=== PATIENT | female | born 1950 | race American Indian/Alaskan Native ===

== ENCOUNTER 2020-05-12 10:10 | Emergency (ER) | payer MEDICARE ==
[2020-05-12] MEDS ORDERED: SODIUM CHLORIDE 0.9% 1000 ML IV SOLN IV ONE (10:48)
[2020-05-12] MEDS ORDERED: FAMOTIDINE 20 MG/2 ML INJ IV ONE (11:12)
--- NOTE | 2020-05-12 11:12 | Emergency Department Report ---
HPI - General Chief Complaint: Weakness Time Seen by Provider: 05/12/20 10:47 - HPI HPI: Room 22 The patient is a 69-year-old female present with a chief complaint of dizziness. Patient states 2 days ago several hours after eating some greasy fish and c hicken from a fast food store she developed nausea vomiting and diarrhea. The patient estimates she vomited 5 times and had 5 episodes of loose diarrhea. Patient states the following day she developed dizziness. Patient continues to complain of dizziness and epigastric abdominal pain. Patient denies history of fever, hematuria or dysuria. Patient states her urine has been dark ED Past Medical Hx - Past Medical History Hx Hypertension: Yes Hx Diabetes: Yes Additional medical history: Non-Hodgkin's lymphoma - Surgical History Additional Surgical History: neck/ BACK AND KNEE SURG/ HYST - Family History Family history: no significant - Social History Smoking Status: Current Every Day Smoker (1/2 pack/day) Substance Use Type: None (Denies illicit drug use) - Medications Home Medications: Home Medications Medication Instructions Recorded Confirmed Last Taken Type HYDROcodone/APAP 5-325 [[place] 1 - 2 each PO Q6HR PRN #14 tablet 05/12/20 Unknown Rx 5/325] Promethazine [Phenergan] 25 mg PO Q6HR PRN #20 tab 05/12/20 Unknown Rx levoFLOXacin [Levaquin] 750 mg PO QDAY #10 tablet 05/12/20 Unknown Rx metroNIDAZOLE [Flagyl] 500 mg PO Q8HR #30 tablet 05/12/20 Unknown Rx ED Review of Systems ROS: Stated complaint: WEAK,LIGHTHEADED Other details as noted in HPI Constitutional: denies: fever Eyes: denies: eye pain ENT: denies: throat pain Respiratory: no symptoms reported Cardiovascular: denies: chest pain Endocrine: no symptoms reported Gastrointestinal: abdominal pain, nausea, vomiting, diarrhea Genitourinary: denies: dysuria, hematuria Musculoskeletal: denies: back pain Neurological: denies: headache Physical Exam - Physical Exam Vital Signs: Vital Signs 05/12/20 05/12/20 10:15 10:50 Temperature 97.5 F L Pulse Rate 105 H 101 H Respiratory 18 22 Rate Blood Pressure 94/63 O2 Sat by Pulse 98 100 Oximetry Physical Exam: GENERAL: The patient is well-developed well-nourished female lying on stretcher not appearing to be in acute distress. [] HEENT: Normocephalic. Atraumatic. Extraocular motions are intact. Patient has moist mucous membranes. NECK: Supple. Trachea midline CHEST/LUNGS: Clear to auscultation. There is no respiratory distress noted. HEART/CARDIOVASCULAR: Regular. There is no tachycardia. There is no gallop rub or murmur. ABDOMEN: Abdomen is tender to palpation in the midepigastric and left upper quadrant. Patient has normal bowel sounds. There is no abdominal distention. SKIN: There is no rash. There is no edema. There is no diaphoresis. NEURO: The patient is awake, alert, and oriented. The patient is cooperative. The patient has normal speech MUSCULOSKELETAL: There is no evidence of acute injury. ED Course Vital Signs 05/12/20 05/12/20 10:15 10:50 Temperature 97.5 F L Pulse Rate 105 H 101 H Respiratory 18 22 Rate Blood Pressure 94/63 O2 Sat by Pulse 98 100 Oximetry ED Medical Decision Making - Lab Data Result diagrams: 05/12/20 10:53 05/12/20 10:53 Laboratory Tests 05/12/20 05/12/20 05/12/20 10:21 10:53 10:53 WBC 7.9 RBC 4.07 Hgb 10.8 Hct 32.1 MCV 79 MCH 26 L MCHC 34 RDW 16.5 H Plt Count 293 Lymph % (Auto) 22.2 [place] % (Auto) 6.5 Eos % (Auto) 0.6 Baso % (Auto) 0.6 Lymph # (Auto) 1.7 [place] # (Auto) 0.5 Eos # (Auto) 0.0 Baso # (Auto) 0.1 Seg Neutrophils % 70.1 H Seg Neutrophils # 5.5 VBG pH Sodium 141 Potassium 2.9 L* Chloride 103.8 Carbon Dioxide 27 Anion Gap 13 BUN 9 Creatinine 1.6 H Estimated GFR 39 BUN/Creatinine Ratio 6 Glucose 97 POC Glucose 111 H Lactic Acid Calcium 8.9 Total Bilirubin 0.30 AST 21 ALT 12 Alkaline Phosphatase 85 Troponin T < 0.010 Total Protein 6.8 Albumin 3.4 L Albumin/Globulin Ratio 1.0 Lipase 36 TSH Free T4 05/12/20 05/12/20 05/12/20 10:53 10:53 10:53 WBC RBC Hgb Hct MCV MCH MCHC RDW Plt Count Lymph % (Auto) [place] % (Auto) Eos % (Auto) Baso % (Auto) Lymph # (Auto) [place] # (Auto) Eos # (Auto) Baso # (Auto) Seg Neutrophils % Seg Neutrophils # VBG pH 7.319 L Sodium Potassium Chloride Carbon Dioxide Anion Gap BUN Creatinine Estimated GFR BUN/Creatinine Ratio Glucose POC Glucose Lactic Acid 1.40 Calcium Total Bilirubin AST ALT Alkaline Phosphatase Troponin T Total Protein Albumin Albumin/Globulin Ratio Lipase TSH 1.520 Free T4 1.20 05/12/20 05/12/20 14:19 15:40 WBC RBC Hgb Hct MCV MCH MCHC RDW Plt Count Lymph % (Auto) [place] % (Auto) Eos % (Auto) Baso % (Auto) Lymph # (Auto) [place] # (Auto) Eos # (Auto) Baso # (Auto) Seg Neutrophils % Seg Neutrophils # VBG pH 7.380 Sodium Potassium Chloride Carbon Dioxide Anion Gap BUN Creatinine Estimated GFR BUN/Creatinine Ratio Glucose POC Glucose Lactic Acid 0.80 Calcium Total Bilirubin AST ALT Alkaline Phosphatase Troponin T Total Protein Albumin Albumin/Globulin Ratio Lipase TSH Free T4 - Radiology Data Radiology results: report reviewed (CT abdomen pelvis), image reviewed (CT abdomen pelvis) [address] [address] Cat Scan Report Signed Patient: SARAH BALL MR#: [id number] 9 : 1950 Acct:[id number] Age/Sex: 69 / F ADM Date: 05/12/20 Loc: ED Attending Dr: Ordering Physician: LONDON SNOW MD Date of Service: 05/12/20 Procedure(s): CT abdomen pelvis wo con Accession Number(s): [id number] cc: LONDON SNOW MD CT ABDOMEN AND PELVIS WITHOUT CONTRAST INDICATION / CLINICAL INFORMATION: Epigastric and left upper quadrant pain nvd. TECHNIQUE: Axial CT images were obtained through the abdomen and pelvis without IV contrast. All CT scans at this location are performed using CT dose reduction for ALARA by means of automated exposure control. COMPARISON: None available. FINDINGS: LOWER CHEST: Mild coronary artery atherosclerotic calcification. Mild pulmonary mosaicism could represent respiratory phase, small airways disease, or small vessel disease. HEPATOBILIARY: No significant abnormality. PANCREAS: No significant abnormality. SPLEEN: No significant abnormality. ADRENALS: Single limb morphology left adrenal gland. Normal right adrenal gland. GENITOURINARY: Pelvic left kidney. Right kidney is in the normal anatomical location. No nephrolithiasis or evidence of obstructive uropathy. Bladder demonstrates no significant abnormality. GASTROINTESTINAL/MESENTERY: Mild inflammatory change surrounding multiple diverticuli in the distal descending colon. No focal fluid collection or free air. No evidence of bowel obstruction. No significant free fluid. RETROPERITONEUM: No significant adenopathy. REPRODUCTIVE ORGANS: No significant abnormality. VASCULAR: Mild atherosclerotic calcification without acute abnormality. SKELETAL SYSTEM: No significant abnormality. ADDITIONAL FI NDINGS: No significant abnormality. IMPRESSION: 1. Mild, acute, uncomplicated diverticulitis in the descending colon, as above. 2. Additional findings as above. Signer Name: Carmine Benavidez MD Signed: 05/12/2020 2:34 PM Workstation Name: [id number] Transcribed By: Dictated By: CARMINE BENAVIDEZ III Electronically Authenticated By: CARMINE BENAVIDEZ III Signed Date/Time: 05/12/201433 DD/ 22 TD/TT: - Differential Diagnosis Gastroenteritis, partial small bowel obstruction, hiatal hernia, Critical care attestation.: If time is entered above; I have spent that time in minutes in the direct care of this critically ill patient, excluding procedure time. ED Disposition Clinical Impression: Acute diverticulitis, Acute abdominal pain Disposition: TO HOME OR SELFCARE Is pt being admited?: No Does the pt Need Aspirin: No Condition: Stable Instructions: Diverticulitis, [id number] Additional Instructions: Return to the emergency department should you develop worsening symptoms, inability to tolerate food or liquids, high fever or any other concerns Prescriptions: metroNIDAZOLE [Flagyl] 500 mg PO Q8HR #30 tablet levoFLOXacin [Levaquin] 750 mg PO QDAY #10 tablet HYDROcodone/APAP 5-325 [[place] 5/325] 1 - 2 each PO Q6HR PRN #14 tablet PRN Reason: Pain Promethazine [Phenergan] 25 mg PO Q6HR PRN #20 tab PRN Reason: Nausea Referrals: PRIMARY CARE, [Primary Care Provider] - 3-5 Days RHIANNON OCASIO MD [Staff Physician] - 3-5 Days ([place]. Ocasio is a [place] stro[place]ologist. Please follow-up with him for further evaluation) Time of Disposition: 16:51
[2020-05-12 11:47] LABS: Basophils # (Auto) 0.1 K/mm3 (0.0-0.1); Basophils % (Auto) 0.6 % (0.0-1.8); Eosinophils % (Auto) 0.6 % (0.0-4.3); Hematocrit 32.1 % (30.3-42.9); Hemoglobin 10.8 gm/dl (10.1-14.3); Lymphocytes # (Auto) 1.7 K/mm3 (1.2-5.4); Lymphocytes % (Auto) 22.2 % (13.4-35.0); Mean Corpuscular HGB Conc 34 % (30-34); Mean Corpuscular Volume 79 fl (79-97); Monocytes # (Auto) 0.5 K/mm3 (0.0-0.8); Monocytes % (Auto) 6.5 % (0.0-7.3); Platelet Count 293 K/mm3 (140-440); Red Blood Count 4.07 M/mm3 (3.65-5.03); Red Cell Distribution Width 16.5 % (13.2-15.2)
[2020-05-12 12:15] LABS: Alanine Aminotransferase 12 units/L (7-56); Albumin 3.4 g/dL (3.9-5); BUN/Creatinine Ratio 6; Blood Urea Nitrogen 9 mg/dL (7-17); Calcium 8.9 mg/dL (8.4-10.2); Hemolysis Index 0
[2020-05-12 13:08] LABS: Free T4 (Free Thyroxine) 1.2 ng/dL (0.76-1.46)
--- NOTE | 2020-05-12 13:19 | XRay Report ---
CHEST 1 VIEW INDICATION / CLINICAL INFORMATION: Weakness, tachycardia. COMPARISON: None available. FINDINGS: SUPPORT DEVICES: None. HEART / MEDIASTINUM: No significant abnormality. LUNGS / PLEURA: No significant pulmonary or pleural abnormality. No pneumothorax. ADDITIONAL FINDINGS: No significant additional findings. IMPRESSION: No acute pulmonary or pleural abnormality Signer Name: Kin Florez MD FACR Signed: 05/12/2020 1:15 PM Workstation Name: [id number]
[2020-05-12] MEDS ORDERED: POTASSIUM CHLORIDE ER 20 MEQ TAB PO ONE (13:26)
--- NOTE | 2020-05-12 14:38 | Cat Scan Report ---
CT ABDOMEN AND PELVIS WITHOUT CONTRAST INDICATION / CLINICAL INFORMATION: Epigastric and left upper quadrant pain nvd. TECHNIQUE: Axial CT images were obtained through the abdomen and pelvis without IV contrast. All CT scans at [facility] location are performed using CT dose reduction for ALARA by means of automated exposure control. COMPARISON: None available. FINDINGS: LOWER CHEST: Mild coronary artery atherosclerotic calcification. Mild pulmonary mosaicism could repre sent respiratory phase, small airways disease, or small vessel disease. HEPATOBILIARY: No significant abnormality. PANCREAS: No significant abnormality. SPLEEN: No significant abnormality. ADRENALS: Single limb morphology left adrenal gland. Normal right adrenal gland. GENITOURINARY: Pelvic left kidney. Right kidney is in the normal anatomical location. No nephrolithia sis or evidence of obstructive uropathy. Bladder demonstrates no significant abnormality. GASTROINTESTINAL/MESENTERY: Mild inflammatory change surrounding multiple diverticuli in the distal d escending colon. No focal fluid collection or free air. No evidence of bowel obstruction. No signific ant free fluid. RETROPERITONEUM: No significant adenopathy. REPRODUCTIVE ORGANS: No significant abnormality. VASCULAR: Mild atherosclerotic calcification without acute abnormality. SKELETAL SYSTEM: No significant abnormality. ADDITIONAL FINDINGS: No significant abnormality. IMPRESSION: 1. Mild, acute, uncomplicated diverticulitis in the descending colon, as above. 2. Additional findings as above. Signer Name: Ramón Benavidez MD Signed: 05/12/2020 2:34 PM Workstation Name: [id number]
[2020-05-12] MEDS ORDERED: levoFLOXacin 750 MG TAB PO ONE (16:10)
[2020-05-12] MEDS ORDERED: metroNIDAZOLE 500 MG TAB PO ONE (16:10)
[2020-05-12 16:54] VITALS: BP 131/82
== END 2020-05-12 17:11 | disposition home or self-care (01) ==
LOC: ED 10:10
DX: K57.90 Diverticulosis of intestine, part unspecified, without perforation or abscess without bleeding (principal); R10.9 Unspecified abdominal pain; I10 Essential (primary) hypertension; E11.9 Type 2 diabetes mellitus without complications; F17.200 Nicotine dependence, unspecified, uncomplicated; Z98.890 Other specified postprocedural states; Z79.899 Other long term (current) drug therapy
CPT/HCPCS: 36415; 71045; 74176; 80053; 82140; 82805; 82962; 83690; 84439; 84443; 84484; 85025; 87040; 96361; 96374; 99284; J7030

== ENCOUNTER 2020-06-09 14:15 | Emergency (ER) | payer MEDICARE ==
[2020-06-09 14:39] VITALS: BP 113/72
[2020-06-09] MEDS ORDERED: KETOROLAC 60 MG/2 ML INJ IM ONE (15:08)
[2020-06-09] MEDS ORDERED: dexAMETHasone 20 MG/5 ML VIAL IM ONE (15:08)
--- NOTE | 2020-06-09 15:26 | Emergency Department Report ---
ED Back Pain/Injury HPI - General Chief Complaint: Extremity Injury, Lower Stated Complaint: LT LEG PAIN Time Seen by Provider: 06/09/20 15:08 Source: patient Limitations: No Limitations - History of Present Illness Initial Comments: Patient is a 69-year-old female who presents emergency room with complaints of left lower back pain that radiates down the left leg that began 4 days ago. she denies any fall or injury. She denies any fever, dysuria, urinary frequency, dark urine, odor to the urine, numbness, weakness. She states that occasionally she does get a pwuz-pkj-udpemey sensation in her left foot but denies any complete numbness. She has a past medical history of diverticulitis and chronic pain. She states that she has had a discectomy of her cervical and lumbar spine. She states that she also has a history of non-Hodgkin's lymphoma in remission since 2014 which she completed a course of chemo and radiation. No allergies to medications. - Related Data Previous Rx's Medication Instructions Recorded Last Taken Type HYDROcodone/APAP 5-325 [[place] 1 - 2 each PO Q6HR PRN #14 tablet 05/12/20 Unknown Rx 5/325] Promethazine [Phenergan] 25 mg PO Q6HR PRN #20 tab 05/12/20 Unknown Rx levoFLOXacin [Levaquin] 750 mg PO QDAY #10 tablet 05/12/20 Unknown Rx metroNIDAZOLE [Flagyl] 500 mg PO Q8HR #30 tablet 05/12/20 Unknown Rx Acetaminophen [Tylenol] 650 mg PO Q8HR PRN #20 capsule 06/09/20 Unknown Rx Menthol/Camphor [[place] 1 applicatio TP BID #18 oint...g. 06/09/20 Unknown Rx Ointment] traMADoL [Ultram 50 MG tab] 50 mg PO Q6HR PRN #12 tablet 06/09/20 Unknown Rx Allergies Allergy/AdvReac Type Severity Reaction Status Date / Time No Known Allergies Allergy Unverified 05/12/20 10:13 ED Review of Systems ROS: Stated complaint: LT LEG PAIN Other details as noted in HPI Comment: All other systems reviewed and negative ED Past Medical Hx - Past Medical History Previous Medical History?: Yes Hx Hypertension: Yes Hx Diabetes: Yes Additional medical history: Non-Hodgkin's lymphoma - Surgical History Past Surgical History?: Yes Additional Surgical History: neck/ BACK AND KNEE SURG/ HYST - Social History Smoking Status: Current Every Day Smoker (1/2 pack/day) Substance Use Type: None (Denies illicit drug use) - Medications Home Medications: Home Medications Medication Instructions Recorded Confirmed Last Taken Type HYDROcodone/APAP 5-325 [[place] 1 - 2 each PO Q6HR PRN #14 tablet 05/12/20 Unknown Rx 5/325] Promethazine [Phenergan] 25 mg PO Q6HR PRN #20 tab 05/12/20 Unknown Rx levoFLOXacin [Levaquin] 750 mg PO QDAY #10 tablet 05/12/20 Unknown Rx metroNIDAZOLE [Flagyl] 500 mg PO Q8HR #30 tablet 05/12/20 Unknown Rx Acetaminophen [Tylenol] 650 mg PO Q8HR PRN #20 capsule 06/09/20 Unknown Rx Menthol/Camphor [[place] 1 applicatio TP BID #18 oint...g. 06/09/20 Unknown Rx Ointment] traMADoL [Ultram 50 MG tab] 50 mg PO Q6HR PRN #12 tablet 06/09/20 Unknown Rx ED Physical Exam - General Limitations: No Limitations General appearance: alert, in no apparent distress - Head Head exam: Present: atraumatic, normocephalic - Eye Eye exam: Present: normal appearance - ENT ENT exam: Present: mucous membranes moist - Neck Neck exam: Present: other (prior surgical healed incision ). Absent: tenderness, full ROM - Respiratory Respiratory exam: Present: normal lung sounds bilaterally. Absent: respiratory distress, wheezes, rales, rhonchi, stridor, chest wall tenderness, accessory muscle use, decreased breath sounds, prolonged expiratory - Cardiovascular Cardiovascular Exam: Present: regular rate, normal rhythm, normal heart sounds. Absent: systolic murmur, diastolic murmur, rubs, gallop - Back Exam Back exam: Present: full ROM, paraspinal tenderness (lumbar), vertebral tenderness (lumbar ), other (prior healed surgical incision ) - Neurological Exam Neurological exam: Present: alert, oriented X3, CN II-XII intact, normal gait. Absent: motor sensory deficit - Psychiatric Psychiatric exam: Present: normal affect, normal mood - Skin Skin exam: Present: warm, dry, intact ED Course Vital Signs 06/09/20 14:36 Temperature 97.9 F Pulse Rate 78 Respiratory 20 Rate Blood Pressure 113/72 [Right] O2 Sat by Pulse 100 Oximetry ED Medical Decision Making - Radiology Data Radiology results: report reviewed Ordering Physician: SANYA PANTOJA Date of Service: 06/09/20 Procedure(s): CT lumbar spine wo con Accession Number(s): [id number] cc: SANYA PANTOJA CT lumbar spine wo con INDICATION / CLINICAL INFORMATION: 69 years Female; back pain radiates left leg, hx of surgery and CA. TECHNIQUE: Axial CT images of the lumbar spine were obtained after administration of intrathecal contrast. Sagittal and coronal reformatted images were produced. All CT scans at this location are performed using CT dose reduction for ALARA by means of automated exposure control. COMPARISON: CT abdomen and pelvis-05/12/2020 FINDINGS: POST-SURGICAL CHANGES: Interbody fusion and posterior fusion hardware seen at L4-5 - unilateral intrapedicular screws noted. Partial left hemilaminectomy/facetectomy noted at this level as well. There may be a mild component of loosening around the interbody graft. Flexion- extension views might be helpful in evaluating for any movement at this fused level. ALIGNMENT: Otherwise grossly normal. VERTEBRAE: No signs of fracture. Vertebral bodies are grossly normal in height throughout. No significant facet joint disease or osseous foraminal narrowing appreciated. INTERVERTEBRAL DISCS: Disc spaces are fairly well-maintained. L1-2: Minimal facet hypertrophy on the right. L2-3: Mild disc bulge and facet hypertrophy. L3-4: Mild disc bulge and facet hypertrophy. No significant sequela. L4-5: As above. Moderate canal narrowing seen at this level. Spondylosis/spurring seen in the lateral recess/medial foraminal region on the left, which may encroach upon the left L4 nerve. Similar findings seen on prior. L5-S1: Mild/moderate disc bulge. Moderate facet hypertrophy on the left and mild on the right. There is mild canal narrowing. Moderate to marked foraminal narrowing on the left from facet hypertrophy and disc disease with encroachment upon and perhaps mild flattening of the left L5 nerve. Qkya-wd-[id number] foraminal narrowing on the right without impingement. Similar type findings suggested on prior. PARASPINAL SOFT TISSUES: No significant abnormality. ADDITIONAL FINDINGS: Calcification is seen in the head of the pancreas near the common bile duct. This finding measures 6 mm in maximum dimension and is not significantly changed in appearance from prior exam. IMPRESSION: 1. Degenerative and postoperative changes of the lumbar spine as described above. Most marked findings appear to be at L4-5 and L5-S1. Please correlate with dermatomal distribution of patient's symptoms, if present. Signer Name: Fabián Samaniego MD, III Signed: 06/09/2020 4:13 PM Workstation Name: [email or web address] Transcribed By: HR Dictated By: Fabián Samaniego MD Electronically Authenticated By: Fabián Samaniego MD Signed Date/Time: 06/09/20 1613 DD/ 1604 TD/TT: - Medical Decision Making Patient is a 69-year-old female who presents emergency room with complaints of left lower back pain that radiates down the left leg that began 4 days ago. she denies any fall or injury. She denies any fever, dysuria, urinary frequency, dark urine, odor to the urine, numbness, weakness. She states that occasionally she does get a swcx-qez-ybrrrmu sensation in her left foot but denies any complete numbness. She has a past medical history of diverticulitis and chronic pain. She states that she has had a discectomy of her cervical and lumbar spine. She states that she also has a history of non-Hodgkin's lymphoma in remission since 2014 which she completed a course of chemo and radiation. No allergies to medications. CT lumbar spine: 1. Degenerative and postoperative changes of the lumbar spine as described above. Most marked findings appear to be at L4-5 and L5-S1. Please correlate with dermatomal distribution of patient's symptoms, if present. Patient has no clinical signs of cauda equina or conus medullaris. Symptoms appear most consistent with sciatica versus lumbar radiculopathy. Discussed all findings with patient and the importance of follow-up. She states that she does see a spine doctor and a pain specialist. Patient given prescription for Tylenol, tramadol, [place] balm ointment. Advised patient please use medication as prescribed. may use ice pack, heating pad, rest, epsom salt bath. follow up with a orthopedic/spine doctor. return to the emergency room for any new or worsening symptoms. - Differential Diagnosis Sciatica, radiculopathy, DDD, bulging disc, herniated disc, spondylosis Critical care attestation.: If time is entered above; I have spent that time in minutes in the direct care of this critically ill patient, excluding procedure time. ED Disposition Clinical Impression: Low back pain Qualifiers: Chronicity: acute Back pain laterality: left Sciatica presence: with sciatica Sciatica laterality: sciatica of left side Qualified Code(s): M54.42 - Lumbago with sciatica, left side Disposition: TO HOME OR SELFCARE Is pt being admited?: No Condition: Stable Instructions: Radicular Pain, Sciatica, Qypy-ze-Lwof Additional Instructions: please use medication as prescribed. may use ice pack, heating pad, rest, epsom salt bath. follow up with a orthopedic/spine doctor. return to the emergency room for any new or worsening symptoms. Prescriptions: Menthol/Camphor [[place] Ointment] 1 applicatio TP BID #18 oint...g. Acetaminophen [Tylenol] 650 mg PO Q8HR PRN #20 capsule PRN Reason: pain traMADoL [Ultram 50 MG tab] 50 mg PO Q6HR PRN #12 tablet PRN Reason: Pain , Severe (7-10) Referrals: PRIMARY CARE, [Primary Care Provider] - 2-3 Days [facility] [Provider Group] - 2-3 Days TERE HURST II, MD [Staff Physician] - 2-3 Days Time of Disposition: 16:19 Print Language: ROMANIAN
--- NOTE | 2020-06-09 16:18 | Cat Scan Report ---
CT lumbar spine wo con INDICATION / CLINICAL INFORMATION: 69 years Female; back pain radiates left leg, hx of surgery and CA. TECHNIQUE: Axial CT images of the lumbar spine were obtained after administration of intrathecal contrast. Sagi ttal and coronal reformatted images were produced. All CT scans at this location are performed using CT dose reduction for ALARA by means of automated exposure control. COMPARISON: CT abdomen and pelvis-05/12/2020 FINDINGS: POST-SURGICAL CHANGES: Interbody fusion and posterior fusion hardware seen at L4-5 - unilateral intra pedicular screws noted. Partial left hemilaminectomy/facetectomy noted at this level as well. There m ay be a mild component of loosening around the interbody graft. Flexion-extension views might be help ful in evaluating for any movement at this fused level. ALIGNMENT: Otherwise grossly normal. VERTEBRAE: No signs of fracture. Vertebral bodies are grossly normal in height throughout. No signif icant facet joint disease or osseous foraminal narrowing appreciated. INTERVERTEBRAL DISCS: Disc spaces are fairly well-maintained. L1-2: Minimal facet hypertrophy on the right. L2-3: Mild disc bulge and facet hypertrophy. L3-4: Mild disc bulge and facet hypertrophy. No significant sequela. L4-5: As above. Moderate canal narrowing seen at this level. Spondylosis/spurring seen in the lateral recess/medial foraminal region on the left, which may encroach upon the left L4 nerve. Similar findi ngs seen on prior. L5-S1: Mild/moderate disc bulge. Moderate facet hypertrophy on the left and mild on the right. There is mild canal narrowing. Moderate to marked foraminal narrowing on the left from facet hypertrophy an d disc disease with encroachment upon and perhaps mild flattening of the left L5 nerve. Ymsd-dt-ezuvu ate foraminal narrowing on the right without impingement. Similar type findings suggested on prior. PARASPINAL SOFT TISSUES: No significant abnormality. ADDITIONAL FINDINGS: Calcification is seen in the head of the pancreas near the common bile duct. Thi s finding measures 6 mm in maximum dimension and is not significantly changed in appearance from prio r exam. IMPRESSION: 1. Degenerative and postoperative changes of the lumbar spine as described above. Most marked finding s appear to be at L4-5 and L5-S1. Please correlate with dermatomal distribution of patient's symptoms , if present. Signer Name: Fabián Samaniego MD, III Signed: 06/09/2020 4:13 PM Workstation Name: [id number]
== END 2020-06-09 16:51 | disposition home or self-care (01) ==
LOC: ED 14:15
DX: M54.5 Low back pain (principal); M79.605 Pain in left leg; R20.0 Anesthesia of skin; I10 Essential (primary) hypertension; E11.9 Type 2 diabetes mellitus without complications; F17.200 Nicotine dependence, unspecified, uncomplicated; Z98.890 Other specified postprocedural states; Z79.899 Other long term (current) drug therapy
CPT/HCPCS: 72131; 96372; 99283; J1100; J1885

== ENCOUNTER 2020-07-27 16:58 | Emergency (ER) | payer MEDICARE ==
[2020-07-27 17:33] VITALS: BP 137/82
--- NOTE | 2020-07-27 18:11 | Emergency Department Report ---
ED Eye Problem HPI - General Chief complaint: Eye Problems Stated complaint: RT EYE IRRITATION Time Seen by Provider: 07/27/20 18:00 Source: patient Mode of arrival: Ambulatory Limitations: No Limitations - History of Present Illness Initial comments: Patient is a 69-year-old female presents emergency room with complaints of right lower eyelid pain and, swelling, irritation that began yesterday morning. She denies anything getting into the eye. She denies any results with the same symptoms. She states that she did have this once in the past several years ago. She denies any drainage from the eye. She denies any vision changes. She denies any contact lens use. Past medical history of hyperlipidemia and non- Hodgkin's lymphoma in remission. No medication allergies. - Related Data Previous Rx's Medication Instructions Recorded Last Taken Type HYDROcodone/APAP 5-325 [[place] 1 - 2 each PO Q6HR PRN #14 tablet 05/12/20 Unknown Rx 5/325] Promethazine [Phenergan] 25 mg PO Q6HR PRN #20 tab 05/12/20 Unknown Rx levoFLOXacin [Levaquin] 750 mg PO QDAY #10 tablet 05/12/20 Unknown Rx metroNIDAZOLE [Flagyl] 500 mg PO Q8HR #30 tablet 05/12/20 Unknown Rx Acetaminophen [Tylenol] 650 mg PO Q8HR PRN #20 capsule 06/09/20 Unknown Rx Menthol/Camphor [[place] 1 applicatio TP BID #18 oint...g. 06/09/20 Unknown Rx Ointment] traMADoL [Ultram 50 MG tab] 50 mg PO Q6HR PRN #12 tablet 06/09/20 Unknown Rx Erythromycin [Erythromycin Ophth 1 applic OP QID 7 Days #1 tube 07/27/20 Unknown Rx Oint] Allergies Allergy/AdvReac Type Severity Reaction Status Date / Time No Known Allergies Allergy Unverified 05/12/20 10:13 ED Review of Systems ROS: Stated complaint: RT EYE IRRITATION Other details as noted in HPI Comment: All other systems reviewed and negative ED Past Medical Hx - Past Medical History Previous Medical History?: Yes Hx Hypertension: Yes Hx Diabetes: Yes Additional medical history: Non-Hodgkin's lymphoma - Surgical History Past Surgical History?: Yes Additional Surgical History: neck/ BACK AND KNEE SURG/ HYST - Social History Smoking Status: Current Every Day Smoker (1/2 pack/day) Substance Use Type: None (Denies illicit drug use) - Medications Home Medications: Home Medications Medication Instructions Recorded Confirmed Last Taken Type HYDROcodone/APAP 5-325 [[place] 1 - 2 each PO Q6HR PRN #14 tablet 05/12/20 Unknown Rx 5/325] Promethazine [Phenergan] 25 mg PO Q6HR PRN #20 tab 05/12/20 Unknown Rx levoFLOXacin [Levaquin] 750 mg PO QDAY #10 tablet 05/12/20 Unknown Rx metroNIDAZOLE [Flagyl] 500 mg PO Q8HR #30 tablet 05/12/20 Unknown Rx Acetaminophen [Tylenol] 650 mg PO Q8HR PRN #20 capsule 06/09/20 Unknown Rx Menthol/Camphor [[place] 1 applicatio TP BID #18 oint...g. 06/09/20 Unknown Rx Ointment] traMADoL [Ultram 50 MG tab] 50 mg PO Q6HR PRN #12 tablet 06/09/20 Unknown Rx Erythromycin [Erythromycin Ophth 1 applic OP QID 7 Days #1 tube 07/27/20 Unknown Rx Oint] ED Physical Exam - General Limitations: No Limitations General appearance: alert, in no apparent distress - Head Head exam: Present: atraumatic, normocephalic - Eye Eye exam: Present: PERRL, EOMI, other (1 cm area of induration present to the right lower eyelid with erythema, no obvious fluctuance, no surrounding erythema). Absent: conjunctival injection - ENT ENT exam: Present: mucous membranes moist - Respiratory Respiratory exam: Absent: respiratory distress, accessory muscle use - Neurological Exam Neurological exam: Present: alert, oriented X3 - Psychiatric Psychiatric exam: Present: normal affect, normal mood - Skin Skin exam: Present: warm, dry, intact ED Course Vital Signs 07/27/20 17:32 Temperature 98.1 F Pulse Rate 71 Respiratory 18 Rate Blood Pressure 137/82 O2 Sat by Pulse 98 Oximetry ED Medical Decision Making - Medical Decision Making Patient is a 69-year-old female presents emergency room with complaints of right lower eyelid pain and, swelling, irritation that began yesterday morning. She denies anything getting into the eye. She denies any results with the same symptoms. She states that she did have this once in the past several years ago. She denies any drainage from the eye. She denies any vision changes. She denies any contact lens use. Past medical history of hyperlipidemia and non- Hodgkin's lymphoma in remission. No medication allergies. vss. on exam: 1 cm area of induration present to the right lower eyelid with erythema, no obvious fluctuance, no surrounding erythema. Examination consistent with internal hordeolum, no signs of dacryocystitis, preseptal or orbital cellulitis. Given prescription for erythromycin ophthalmic ointment. Advised patient Please use medication as prescribed. Please wash your hands before and after placing ointment. please do warm compresses 3-4 times a day. Follow-up with a primary care doctor for reexamination. Return to emergency room for new or worsening symptoms. Critical care attestation.: If time is entered above; I have spent that time in minutes in the direct care of this critically ill patient, excluding procedure time. ED Disposition Clinical Impression: Internal hordeolum of right eye Qualifiers: Eyelid: lower Qualified Code(s): H00.022 - Hordeolum internum right lower eyelid Disposition: DC- TO HOME OR SELFCARE Is pt being admited?: No Does the pt Need Aspirin: No Condition: Stable Instructions: Stye Additional Instructions: Please use medication as prescribed. Please wash your hands before and after placing ointment. please do warm compresses 3-4 times a day. Follow-up with a primary care doctor for reexamination. Return to emergency room for new or worsening symptoms. Prescriptions: Erythromycin [Erythromycin Ophth Oint] 1 applic OP QID 7 Days #1 tube Referrals: SHERYL EDWARDS MD [Primary Care Provider] - 2-3 Days Time of Disposition: 18:10 Print Language: [place]ESE
== END 2020-07-27 18:41 | disposition home or self-care (01) ==
LOC: ED 16:58
DX: H00.022 Hordeolum internum right lower eyelid (principal); I10 Essential (primary) hypertension; E11.9 Type 2 diabetes mellitus without complications; F17.200 Nicotine dependence, unspecified, uncomplicated; Z98.890 Other specified postprocedural states; Z79.899 Other long term (current) drug therapy
CPT/HCPCS: 99281

== ENCOUNTER 2021-04-11 12:11 | Emergency (ER) | payer MEDICARE ==
--- NOTE | 2021-04-11 12:28 | Emergency Department Report ---
Eye Injury/Foreign Body - HPI Duration: 5 Days Eye Location: Left Severity: Mild Tetanus Status: Up to Date Eye Symptoms: Eye Pain: No, Blurred Vision: No, Eye Redness: Yes, Grinding/Hammering Metal: No, Used Eye Protection: No, Contact Lens Use: No, Recalls Injury: No, Photophobia: No Other History: 70 yo comes to ER with style lower lid left eye. No trauma. no change in vision. Has hx of the same- does not follow up with optho as instructed. pt ambulatory and in nad on exam in triage ED Review of Systems ROS: Stated complaint: LT EYE IRRITATION Other details as noted in HPI Comment: All other systems reviewed and negative ED Past Medical Hx - Past Medical History Previous Medical History?: Yes Hx Hypertension: Yes Hx Diabetes: Yes Additional medical history: Non-Hodgkin's lymphoma - Surgical History Past Surgical History?: Yes Additional Surgical History: neck/ BACK AND KNEE SURG/ HYST - Family History Family history: no significant - Social History Smoking Status: Current Every Day Smoker (1/2 pack/day) Substance Use Type: None (Denies illicit drug use) - Medications Home Medications: Home Medications Medication Instructions Recorded Confirmed Last Taken Type Erythromycin [Erythromycin Ophth 1 applic OP QID 7 Days #1 tube 04/11/21 Unknown Rx Oint] Eye Injury Exam - Exam General: Vital signs noted. No distress. Alert and acting appropriately. alert oriented no focal def eoms intact globe intact no change in vision style lower lid of left eye [id number] lungs cta abd snt ED Medical Decision Making - Medical Decision Making [facility] per RN vs normal as documented by RN dc home with dc plan of care including optho follow up /meds and wound care. Pt verbalizes understanding of plan of care - Differential Diagnosis Critical care attestation.: If time is entered above; I have spent that time in minutes in the direct care of this critically ill patient, excluding procedure time. ED Disposition Clinical Impression: Hordeolum eyelid Qualifiers: Hordeolum type: externum Laterality: left Eyelid: lower Qualified Code(s): H00.015 - Hordeolum externum left lower eyelid Disposition: HOME / SELF CARE / HOMELESS Is pt being admited?: No Does the pt Need Aspirin: No Condition: Stable Instructions: Stye Additional Instructions: warm compresses to eye motrin or tylenol for pain med as ordered today follow up with EYE MD next week for recheck referral below Referrals: RADHIKA QUEVEDO MD [Staff Physician] - 3-5 Days Time of Disposition: 12:38
== END 2021-04-11 14:45 | disposition home or self-care (01) ==
LOC: ED 12:11
DX: H00.015 Hordeolum externum left lower eyelid (principal); I10 Essential (primary) hypertension; E11.9 Type 2 diabetes mellitus without complications; F17.200 Nicotine dependence, unspecified, uncomplicated; Z79.899 Other long term (current) drug therapy
CPT/HCPCS: 99282